=== PATIENT | female | born 1970 | race Caucasian/White ===

== ENCOUNTER 2017-02-25 14:12 | Emergency (ER) | payer OTHER ==
[2017-02-25] MEDS: IBUPROFEN 600 MG TAB PO (15:43)
== END 2017-02-25 17:00 | disposition home or self-care (01) ==
LOC: FTE 14:12
DX: S93.602A Unspecified sprain of left foot, initial encounter (principal); X58.XXXA Exposure to other specified factors, initial encounter; Y92.9 Unspecified place or not applicable
CPT/HCPCS: 73630; 73630-LT; 99283-25